=== PATIENT | female | born 1995 | race Caucasian/White ===

== ENCOUNTER 2022-08-05 13:19 | Emergency (ER) | payer MEDICAID ==
[~2022-08-05] VITALS: Ht 165.1 cm; Wt 109.0 kg
[2022-08-05 13:21] VITALS: BP 107/60
[2022-08-06 00:15] LABS: CHLORIDE 106 mEq/L (98-107)
[2022-08-06 00:25] LABS: BASOPHILS % 0.2 % (0.0-2.0); EOSINOPHILS % 2.2 % (0.0-5.0); HEMOGLOBIN. 13.3 g/dL (12.0-16.0); LYMPHOCYTES % 21.7 % (20.0-50.0); MEAN CORPUSCULAR HEMOGLOBIN 26.2 pg (28.0-32.0); MEAN CORPUSCULAR VOLUME 78.8 fL (81.0-99.0); MEAN PLATELET VOLUME 8.7 fl (7.4-10.4); MONOCYTES % 5.9 % (2.0-8.0); PLATELET 249 x1000/uL (130-400); RED BLOOD CELL COUNT 5.08 mill/uL (4.2-5.4); RED CELL DISTRIBUTION WIDTH 14.4 % (11.6-14.6)
[2022-08-06 00:51] LABS: HCG SCREEN NEGATIVE
[2022-08-06 01:23] LABS: CLARITY URINE CLEAR (CLEAR); COLOR URINE YELLOW (YELLOW); KETONES URINE NEGATIVE (NEGATIVE); LEUKOCYTE ESTERASE URINE NEGATIVE (NEGATIVE); NITRITE URINE NEGATIVE (NEGATIVE); OCCULT BLOOD URINE NEGATIVE (NEGATIVE); PROTEIN URINE NEGATIVE (NEGATIVE); SPECIFIC GRAVITY URINE 1.035 (1.005-1.030)
== END 2022-08-06 02:17 | disposition home or self-care (01) ==
LOC: ER 13:19
DX: R10.13 Epigastric pain (principal); F32.A Depression, unspecified
CPT/HCPCS: 36415; 80053; 81003; 81025; 84703; 85025; 99283

== ENCOUNTER 2024-07-26 07:21 | Emergency (ER) | payer MEDICAID, OTHER ==
[~2024-07-26] VITALS: Ht 162.6 cm; Wt 180.0 kg
[2024-07-26] MEDS ORDERED: albuterol (07:31)
[2024-07-26 07:32] VITALS: BP 159/87; PULSE 90; RESP 16; TEMP 98.7; O2SAT 100
[2024-07-26 10:09] LABS: *AMPHETAMINES SCREEN URINE PRESUMPTIVE POSITIVE (NEGATIVE); *BARBITURATES SCREEN URINE NEGATIVE (NEGATIVE); *BENZODIAZEPINES SCREEN URINE NEGATIVE (NEGATIVE); *COCAINE SCREEN URINE NEGATIVE (NEGATIVE); CANNABINOID URINE SCREEN PRESUMPTIVE POSITIVE (NEGATIVE); ECSTASY MDMA SCREEN URINE CONF.TEST INDICATED (NEGATIVE); METHADONE URINE SCREEN NEGATIVE (NEGATIVE); OPIATES URINE SCREEN NEGATIVE (NEGATIVE); PHENCYCLIDINE URINE SCREEN NEGATIVE (NEGATIVE)
[2024-07-26] MEDS ORDERED: DEXT30DR5 EACHEYE (11:31)
== END 2024-07-26 12:06 | disposition home or self-care (01) ==
LOC: ER 07:34
DX: R09.A9 Foreign body sensation, other site (principal); F15.10 Other stimulant abuse, uncomplicated; Z72.0 Tobacco use; H10.30 Unspecified acute conjunctivitis, unspecified eye
CPT/HCPCS: 70490; 71045; 80305; 81025; 99284

== ENCOUNTER 2024-08-28 23:33 | Emergency (ER) | payer MEDICAID, OTHER ==
[~2024-08-28] VITALS: Ht 157.5 cm; Wt 226.0 kg
[~2024-08-28 23:33] MED LIST: DEXT30DR5 EACHEYE; albuterol
[2024-08-28 23:58] VITALS: O2SAT 97
[2024-08-29 00:03] VITALS: BP 107/66; PULSE 105; TEMP 98; O2SAT 100
[2024-08-29 01:15] VITALS: RESP 17
[2024-08-29] MEDS: MAGNESIUM/ALUMINUM HYDROXIDE/SIMETHICONE 30ML UDC PO ONE (01:30)
== END 2024-08-29 01:30 | disposition home or self-care (01) ==
LOC: ER 23:33
DX: R09.A2 Foreign body sensation, throat (principal); F19.90 Other psychoactive substance use, unspecified, uncomplicated
CPT/HCPCS: 70360; 99283